=== PATIENT | female | born 2000 | race Caucasian/White ===

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

== ENCOUNTER 2020-03-27 12:55 | Inpatient (IN) ==
[2020-03-27] MEDS ORDERED: DINOPROSTONE VAG GEL 10 MG SYRINGE VAG ONE (14:27)
[2020-03-27] MEDS ORDERED: ONDANSETRON 4 MG/2 ML VIAL IV PRN (15:23)
[2020-03-27 15:52] LABS: Basophils % 0.2 % (0.0-0.8); Eosinophils # 0.1 10*3/uL (0.0-0.87); Eosinophils % 1.1 % (0.00-10.9); Hematocrit 38.3 VOL% (35.7-47.0); Hemoglobin 12.6 GM/DL (12.0-16.0); Immature Granulocytes % 0.6 %; Immature Granulocytes Absolute 0.06 #; Lymphocytes # 2.3 10*3/uL (1.4-4.0); Lymphocytes % 22.4 % (21.3-54.2); Mean Corpuscular HGB Conc 32.9 GM/DL (32-36); Mean Platelet Volume 10.3 FL (9.6-12.0); Monocytes % 4.9 % (1.7-12.7); Neutrophils % 70.8 % (38.7-73.9); Platelet Count 277 T/CUMM (130-400); White Blood Count 10.2 T/CUMM (4-12)
[2020-03-27 16:07] LABS: Alanine Aminotransferase 20 U/L (13-56); Albumin 2.4 G/DL (3.4-5.0); Alkaline Phosphatase 174 U/L (45-117); Aspartate Amino Transferase 16 U/L (0-37); Bilirubin,Total < 0.39 MG/DL (0.2-1.0); Blood Urea Nitrogen 12 MG/DL (7-18); Calcium 9.4 MG/DL (8.5-10.1); Estimated Glom Filtration Rate 142 ML/MIN; Glucose 74 MG/DL (74-106); Osmolality,Calculated 271.8 MOS/KG (273-304); Total Protein 7.3 G/DL (6.4-8.3); Uric Acid 5.2 MG/DL (2.6-6.0)
[2020-03-27] MEDS: LACTATED RINGERS 1,000 ML IV SCH ×2 (19:45→23:50)
[2020-03-27] MEDS ORDERED: LABETALOL 100 MG TABLET PO SCH (21:00)
[2020-03-27] MEDS ORDERED: TERBUTALINE 1 MG/1 ML VIAL ONE (21:50)
[2020-03-27] MEDS ORDERED: TERBUTALINE 1 MG/1 ML VIAL SUBCUT ONE (21:53)
[2020-03-28] MEDS ORDERED: TERBUTALINE 1 MG/1 ML VIAL SUBCUT ONE (01:00)
[2020-03-28] MEDS ORDERED: CITRIC ACID/SODIUM CITRATE 30 ML UDCUP PO ONE ×2 (06:07→07:30)
[2020-03-28] MEDS ORDERED: FAMOTIDINE 20 MG/2 ML VIAL IV ONE ×2 (06:07→07:30)
[2020-03-28] MEDS ORDERED: METHYLERGONOVINE 0.2 MG/1 ML AMP ONE (07:17)
[2020-03-28] MEDS ORDERED: TRANEXAMIC ACID 1,000 MG/10 ML VIAL ONE (07:17)
[2020-03-28] MEDS ORDERED: miSOPROStoL 200 MCG TABLET ONE (07:17)
[2020-03-28] MEDS ORDERED: CARBOPROST TROMETHAMINE 250 MCG/ML AMP IM ONE (07:17)
[2020-03-28] MEDS ORDERED: OXYTOCIN/LR 20 UNIT/1,000 ML BAG IV ONE ×2 (07:17→09:59)
[2020-03-28] MEDS ORDERED: SODIUM CHLORIDE 0.9% 0 ML IV ONE (07:18)
[2020-03-28] MEDS ORDERED: OXYTOCIN 10 UNIT/ML VIAL ONE (07:20)
[2020-03-28] MEDS ORDERED: PHENYLEPHRINE 1 MG/10 ML SYRINGE IV ONE ×2 (07:24→09:30)
[2020-03-28] MEDS ORDERED: BUPIVACAINE SPINAL 0.75% 2 ML AMP SPINAL ONE (07:24)
[2020-03-28] MEDS ORDERED: MORPHINE 10 MG/10 ML VIAL ONE (07:24)
[2020-03-28] MEDS ORDERED: fentaNYL 100 MCG/2 ML VIAL ONE (07:24)
[2020-03-28] MEDS ORDERED: ceFAZolin 3,000 MG in SYRINGE 1 EACH IV ONE (07:30)
[2020-03-28 07:41] LABS: INR 0.9; PT Patient Result 9.4 SECS (9.8-11.9); Partial Thromboplastin Time 26.9 SECS (23.9-33.8)
[2020-03-28] MEDS: LACTATED RINGERS 1,000 ML IV SCH (07:48)
[2020-03-28 07:50] LABS: Bilirubin,Direct < 0.050 MG/DL (0.0-0.20); Uric Acid 6.3 MG/DL (2.6-6.0)
[2020-03-28 07:52] LABS: Apearance,Urine CLEAR (Clear); Bilirubin,Urine Negative (Negative); Blood, Urine Negative (Negative); Glucose,Urine (UA) Negative (Negative); Ketones,Urine Negative (Negative); Mucus,Urine Few /LPF (Occasional); Nitrite,Urine Negative (Negative); Protein,Urine 100 MG/DL; RBC,Urine 1 /HPF (0-4); Squamous Epithelial Cell,Urine Occasional /HPF (0-10); Urine Color Yellow (Yellow); Urine Specific Gravity 1.023 (1.001-1.035); Urine Urobilinogen < 2.0 EU/DL (0.2-1.0)
[2020-03-28] MEDS ORDERED: OXYTOCIN 10 UNIT/ML VIAL IM ONE (08:00)
[2020-03-28] MEDS ORDERED: OXYTOCIN/LR 30 UNIT/1,000 ML BAG IV ONE (08:30)
[2020-03-28] MEDS ORDERED: OXYTOCIN 10 UNIT/ML VIAL IV ONE (08:30)
[2020-03-28 08:58] LABS: Cord Venous Blood HCO3 22.1 MMOL/L; Cord Venous Blood PCO2 93.9 MMHG
[2020-03-28] MEDS ORDERED: HYDROmorphone 2 MG/1 ML VIAL IV PRN (09:26)
[2020-03-28] MEDS ORDERED: hydrOXYzine HCL 25 MG/1 ML VIAL IM PRN (09:26)
[2020-03-28] MEDS ORDERED: diphenhydrAMINE 50 MG/1 ML VIAL IV PRN (09:26)
[2020-03-28] MEDS ORDERED: SODIUM CHLORIDE 0.9% 1,000 ML IV SCH (09:30)
[2020-03-28] MEDS ORDERED: LACTATED RINGERS 1,000 ML IV SCH ×2 (09:30→10:00)
[2020-03-28] MEDS ORDERED: ACETAMINOPHEN 325 MG TABLET PO PRN (09:59)
[2020-03-28] MEDS ORDERED: RHO(D) IMMUNE GLOBULIN 300 MCG SYRINGE IM ONE (09:59)
[2020-03-28] MEDS ORDERED: SIMETHICONE CHEW 80 MG TABLET PO PRN (09:59)
[2020-03-28] MEDS ORDERED: MAGNESIUM HYDROXIDE SUSP 30 ML UDCUP PO PRN (09:59)
[2020-03-28] MEDS ORDERED: IBUPROFEN 800 MG TABLET PO PRN (09:59)
[2020-03-28] MEDS ORDERED: ONDANSETRON 4 MG/2 ML VIAL IV PRN (09:59)
[2020-03-28] MEDS ORDERED: ceFAZolin 1,000 MG in SYRINGE 1 EACH IV SCH (10:00)
[2020-03-28] MEDS: KETOROLAC 30 MG/1 ML VIAL IV SCH (16:45)
[2020-03-28] MEDS: FUROSEMIDE 40 MG/4 ML VIAL IV SCH (16:49)
[2020-03-28 17:14] LABS: Basophils % 0.3 % (0.0-0.8); Eosinophils % 0.2 % (0.00-10.9); Hematocrit 32.9 VOL% (35.7-47.0); Immature Granulocytes % 0.3 %; Immature Granulocytes Absolute 0.04 #; Lymphocytes % 17.6 % (21.3-54.2); Mean Corpuscular HGB Conc 33.4 GM/DL (32-36); Mean Corpuscular Volume 87.5 FL (87-102); Mean Platelet Volume 9.9 FL (9.6-12.0); Monocytes % 4.9 % (1.7-12.7); Neutrophils % 76.7 % (38.7-73.9); Platelet Count 201 T/CUMM (130-400); Red Blood Count 3.76 MC/CUMM (3.8-5.5); Red Cell Distribution Width 15.1 % (9.3-17.3); White Blood Count 11.5 T/CUMM (4-12)
[2020-03-29] MEDS ORDERED: ceFAZolin 1,000 MG in SYRINGE 1 EACH IV SCH
[2020-03-29] MEDS: KETOROLAC 30 MG/1 ML VIAL IV SCH ×2 (00:03→06:23)
[2020-03-29] MEDS: DOCUSATE SODIUM 100 MG CAPSULE PO SCH ×2 (03:47→08:50)
[2020-03-29 04:30] LABS: Basophils % 0.3 % (0.0-0.8); Eosinophils # 0.1 10*3/uL (0.0-0.87); Eosinophils % 0.8 % (0.00-10.9); Hematocrit 30.8 VOL% (35.7-47.0); Immature Granulocytes % 0.3 %; Immature Granulocytes Absolute 0.03 #; Lymphocytes # 2.1 10*3/uL (1.4-4.0); Lymphocytes % 21.8 % (21.3-54.2); Mean Corpuscular HGB Conc 32.5 GM/DL (32-36); Mean Corpuscular Volume 88.3 FL (87-102); Monocytes % 6.7 % (1.7-12.7); Neutrophils % 70.1 % (38.7-73.9); Platelet Count 170 T/CUMM (130-400); Red Blood Count 3.49 MC/CUMM (3.8-5.5); Red Cell Distribution Width 15.3 % (9.3-17.3); White Blood Count 9.8 T/CUMM (4-12)
[2020-03-29] MEDS: FUROSEMIDE 40 MG/4 ML VIAL IV SCH ×2 (06:28→18:21)
[2020-03-29] MEDS ORDERED: KETOROLAC 30 MG/1 ML VIAL IV SCH (06:30)
[2020-03-29] MEDS: MULTIVITAMIN (PRENATAL) TABLET PO SCH (08:50)
[2020-03-29] MEDS ORDERED: RHO(D) IMMUNE GLOBULIN 300 MCG SYRINGE IM ONE (17:30)
[2020-03-30 08:10] VITALS: BP 127/85
[2020-03-30] MEDS: MULTIVITAMIN (PRENATAL) TABLET PO SCH (08:30)
== END 2020-03-30 10:25 | disposition home or self-care (01) | DRG 540 ==
LOC: N.LDOUT 12:55 → N.LD 13:00 → N.OB 03-28 12:00
PROVIDERS: ADMIT Obstetrics & Gynecology; ATTEND Obstetrics & Gynecology
PROC: LDCSECT (ICD-10-PCS; 2020-03-28 08:00)